=== PATIENT | female | born 1980 | race Caucasian/White ===

== ENCOUNTER 2024-07-07 16:31 | Emergency (ER) | payer MEDICARE, OTHER ==
[~2024-07-07] VITALS: Ht 165.1 cm; Wt 127.3 kg
[2024-07-07 16:58] VITALS: TEMP 99
[2024-07-07 17:19] LABS: BASO % 0.3 % (0.0-1.0); EOS # 0.1 10^3/uL (0.0-0.5); EOS % 1.4 % (0.0-3.0); HEMATOCRIT 32.8 % (36.0-47.0); HEMOGLOBIN 9.2 g/dl (12.0-15.5); LYMPH # 1.9 10^3/uL (1.5-5.0); LYMPH % 19.6 % (24.0-44.0); MEAN CORPUSCULAR HEMOGLOBIN 20.1 pg (27.0-33.0); MEAN CORPUSCULAR VOLUME 71.6 fl (80.0-96.0); MONO # 0.6 10^3/uL (0.0-0.8); MONO % 6.5 % (2.0-8.0); NEUTROPHILS # 6.9 10^3/uL (1.5-8.5); NEUTROPHILS % 71.7 % (36.0-66.0); PLATELET COUNT, AUTOMATED 271 10^3/uL (150-450); RED BLOOD COUNT 4.58 10^6/uL (4.00-5.40); WHITE BLOOD COUNT 9.7 10^3/uL (4.0-10.0)
[2024-07-07 17:40] LABS: D-DIMER QUANT 0.48 ug/mL (<0.5); INR 1.21
[2024-07-07 17:44] LABS: CK-MB VALUE MASS < 1.0 NG/ML (<3.6)
[2024-07-07 17:46] LABS: ALBUMIN 3.4 G/DL (3.2-5.2); ALKALINE PHOSPHATASE 66 U/L (46-116); ALT/SGPT 23 U/L (7.0-40); AST/SGOT 22 U/L (<34); BILIRUBIN,DIRECT 0.2 MG/DL (<0.4); BILIRUBIN,TOTAL 0.5 MG/DL (0.3-1.2); BLOOD UREA NITROGEN 15 MG/DL (9-23); CALCIUM LEVEL 9.2 MG/DL (8.5-10.1); CARBON DIOXIDE LEVEL 32 MMOL/L (20-31); CHLORIDE LEVEL 102 MMOL/L (98-107); CPK CREATINE PHOSPHOKINASE 61 U/L (34-145); CREATININE FOR GFR 0.84 MG/DL (0.55-1.30); GLOMERULAR FILTRATION RATE > 60.0 (>58); GLUCOSE, FASTING 131 MG/DL (60-100); MB/CK RELATIVE INDEX 1.63 (< OR =4); POTASSIUM SERUM 3.5 MMOL/L (3.5-5.1); SODIUM LEVEL 139 MMOL/L (136-145); TOTAL PROTEIN 6.5 G/DL (5.7-8.2)
[2024-07-07 18:14] LABS: HCG, SERUM QUALITATIVE NEGATIVE (NEGATIVE)
[2024-07-07] MEDS: IPRATROPIUM 0.5MG/ALBUTEROL 2.5MG INH SOL UD 3ML (DUONEB) NEB ONE (19:24)
[2024-07-07] MEDS: methylPREDNISolone 125MG 2ML VIAL IV ONE (19:26)
[2024-07-07] MEDS ORDERED: diphenhydrAMINE 50MG/ML VIAL IV STA (20:14)
[2024-07-07] MEDS: READI-CAT 2 PO SCH (21:09)
[2024-07-07] MEDS ORDERED: SILD1TAB8 PO (22:04)
[2024-07-07] MEDS ORDERED: INSUHUMDS SC (22:04)
[2024-07-07] MEDS ORDERED: XARE20TA PO (22:04)
[2024-07-07] MEDS ORDERED: SPIR50TA4 PO (22:04)
[2024-07-07] MEDS ORDERED: MAGN400T2 PO (22:04)
[2024-07-07] MEDS ORDERED: BUPR1SUB5 SL (22:04)
[2024-07-07] MEDS ORDERED: LITH150C PO (22:04)
[2024-07-07] MEDS ORDERED: LORA1TAB23 PO (22:04)
[2024-07-07] MEDS ORDERED: METO5TA PO (22:04)
[2024-07-07] MEDS ORDERED: POTA-298 PO (22:04)
[2024-07-07] MEDS ORDERED: ISOS1TAB35 PO (22:04)
[2024-07-07] MEDS ORDERED: FURO40TA2 PO (22:04)
[2024-07-07] MEDS ORDERED: HOME MED LIST COMPLETE! XX SCH (22:05)
[2024-07-08] MEDS ORDERED: PROT1TAB2 PO (00:43)
[2024-07-08 02:30] VITALS: BP 122/66; O2SAT 96
== END 2024-07-08 08:28 | disposition home or self-care (01) ==
LOC: EDBD 16:31 → M ED 16:31
DX: K76.0 Fatty (change of) liver, not elsewhere classified (principal); I31.39 Other pericardial effusion (noninflammatory); J69.8 Pneumonitis due to inhalation of other solids and liquids; K92.2 Gastrointestinal hemorrhage, unspecified; K74.60 Unspecified cirrhosis of liver; R07.89 Other chest pain; D25.9 Leiomyoma of uterus, unspecified; I50.22 Chronic systolic (congestive) heart failure; F43.10 Post-traumatic stress disorder, unspecified; J44.9 Chronic obstructive pulmonary disease, unspecified; F12.10 Cannabis abuse, uncomplicated; I27.0 Primary pulmonary hypertension; Z88.2 Allergy status to sulfonamides; Z88.5 Allergy status to narcotic agent; Z91.041 Radiographic dye allergy status; Z79.4 Long term (current) use of insulin; Z79.01 Long term (current) use of anticoagulants; Z79.899 Other long term (current) drug therapy
CPT/HCPCS: 71045; 71250; 74176; 80048; 80076; 82550; 82553; 83605; 83880; 84484; 84703; 85025; 85379; 85610; 87486; 87581; 87633; 87798; 93005; 93041; 94640; 94760; 96374; 99285; J2919

== ENCOUNTER 2024-08-10 01:33 | Emergency (ER) | payer MEDICARE ==
[~2024-08-10] VITALS: Ht 165.1 cm; Wt 127.3 kg
[~2024-08-10 01:33] MED LIST: BUPR1SUB5 SL; FURO40TA2 PO; INSUHUMDS SC; ISOS1TAB35 PO; LITH150C PO; LORA1TAB23 PO; MAGN400T2 PO; METO5TA PO; POTA-298 PO; PROT1TAB2 PO; SILD1TAB8 PO; SPIR50TA4 PO; XARE20TA PO
[2024-08-10 02:08] VITALS: TEMP 96.8
[2024-08-10 02:31] LABS: HEMATOCRIT 34.9 % (36.0-47.0); HEMOGLOBIN 10.1 g/dl (12.0-15.5); MEAN CORPUSCULAR HEMOGLOBIN 20.8 pg (27.0-33.0); MEAN CORPUSCULAR HGB CONC 28.9 g/dl (32.0-36.5); PLATELET COUNT, AUTOMATED 318 10^3/uL (150-450); RED BLOOD COUNT 4.85 10^6/uL (4.00-5.40); WHITE BLOOD COUNT 13.6 10^3/uL (4.0-10.0)
[2024-08-10 02:53] LABS: ETHYL ALCOHOL (ETHANOL) 0.005 % (0.000-0.010)
[2024-08-10 02:54] LABS: SALICYLATE LEVEL < 3.0 MG/DL (<30)
[2024-08-10 02:55] LABS: ALBUMIN 3.5 G/DL (3.2-5.2); ALKALINE PHOSPHATASE 71 U/L (35-104); ALT/SGPT 24 U/L (7.0-40); AST/SGOT 16 U/L (<34); BILIRUBIN,DIRECT 0.2 MG/DL (<0.4); BILIRUBIN,TOTAL 0.6 MG/DL (0.3-1.2); BLOOD UREA NITROGEN 14 MG/DL (9-23); CALCIUM LEVEL 9.7 MG/DL (8.5-10.1); CARBON DIOXIDE LEVEL 26 MMOL/L (20-31); CHLORIDE LEVEL 107 MMOL/L (98-107); GLOMERULAR FILTRATION RATE > 60.0 (>58); GLUCOSE, FASTING 143 MG/DL (60-100); POTASSIUM SERUM 3.5 MMOL/L (3.5-5.1); SODIUM LEVEL 140 MMOL/L (136-145)
[2024-08-10 02:57] LABS: THYROID STIMULATING HORMONE 2.805 uIU/ML (0.55-4.78)
[2024-08-10 03:18] LABS: HCG, SERUM QUALITATIVE NEGATIVE (NEGATIVE)
[2024-08-10] MEDS: PRAMIPEXOLE 1 MG TAB PO STA (04:18)
[2024-08-10 06:37] LABS: AMPHETAMINES LEVEL URINE NEGATIVE (NEGATIVE); BARBITURATES URINE NEGATIVE (NEGATIVE); BENZODIAZEPINES URINE NEGATIVE (NEGATIVE); COCAINE METABOLITE URINE NEGATIVE (NEGATIVE); METHADONE URINE NEGATIVE (NEGATIVE)
[2024-08-10 06:38] LABS: OPIATES URINE NEGATIVE (NEGATIVE); PHENCYCLIDINE URINE NEGATIVE (NEGATIVE)
[2024-08-10 06:43] LABS: CANNABINOIDS URINE POSITIVE (NEGATIVE)
[2024-08-10 09:39] VITALS: BP 161/89; O2SAT 99
== END 2024-08-10 09:55 | disposition home or self-care (01) ==
LOC: M ED 01:33 → EDBD 01:33 → M ED 09:55
DX: F43.20 Adjustment disorder, unspecified (principal); J44.9 Chronic obstructive pulmonary disease, unspecified; F31.9 Bipolar disorder, unspecified; F32.A Depression, unspecified; F17.290 Nicotine dependence, other tobacco product, uncomplicated; F10.10 Alcohol abuse, uncomplicated; Z88.2 Allergy status to sulfonamides; Z88.5 Allergy status to narcotic agent; Z91.041 Radiographic dye allergy status; Z79.4 Long term (current) use of insulin; Z79.899 Other long term (current) drug therapy